=== PATIENT | male | born 1970 | race Caucasian/White ===

== ENCOUNTER 2017-09-26 18:13 | Emergency (ER) | payer OTHER ==
[~2017-09-26] VITALS: Ht 172.7 cm; Wt 127.0 kg
--- NOTE | 2017-09-26 18:13 | NUR ---
PT BIBA TO BED 11 AT THIS TIME.
[2017-09-26 18:17] VITALS: BP 191/95
--- NOTE | 2017-09-26 18:20 | NUR ---
47 YO MALE BIB EMS FROM HOME FOR SUDENT ONSET ON HTN. DENIES N/V/D; SKIN IS PINK/WARM/DRY; AAOX4 WITH EVEN AND STEADY GAIT; LUNGS CLEAR BL; HR EVEN AND REGULAR; PT DENIES ANY FEVER, CP, SOB, OR COUGH AT THIS TIME; PATIENT STATES PAIN OF 1/10 AT THIS TIME; VSS; PATIENT POSITIONED FOR COMFORT; HOB ELEVATED; BEDRAILS UP X2; BED DOWN. ER MD MADE AWARE OF PT STATUS.
[2017-09-26] MEDS ORDERED: HYDR-3320 PO (18:23)
[2017-09-26] MEDS ORDERED: METF1000 PO (18:23)
[2017-09-26] MEDS ORDERED: ASPI325T49 PO (18:23)
[2017-09-26] MEDS ORDERED: ATOR40TA PO (18:23)
[2017-09-26] MEDS ORDERED: AMLO10TA PO (18:23)
[2017-09-26] MEDS ORDERED: METO25TA PO (18:23)
[2017-09-26] MEDS ORDERED: METOPROLOL 5 MG/5 ML VIAL IVP ONE (18:25)
--- NOTE | 2017-09-26 18:41 | NUR ---
DR DELGADO EVALUATING AAO PT
--- NOTE | 2017-09-26 18:42 | NUR ---
POST LOPRESSOR MEDICATION VS; BP 149/79, HR 88, SPO2 97%, RR 16; DR DELGADO NOTIFIED AT BEDSIDE
[2017-09-26 19:00] VITALS: BP 134/85
--- NOTE | 2017-09-26 19:00 | NUR ---
Patient discharged with v/s stable. Written and verbal after care instructions given and explained. Patient verbalized understanding. Ambulatory with steady gait. All questions addressed prior to discharge. Advised to follow up with PMD.
== END 2017-09-26 19:00 | disposition home or self-care (01) ==
LOC: MED 18:13
DX: I10 Essential (primary) hypertension (principal); E11.9 Type 2 diabetes mellitus without complications; Z79.84 Long term (current) use of oral hypoglycemic drugs; Z79.899 Other long term (current) drug therapy; Z90.89 Acquired absence of other organs
CPT/HCPCS: 96374; 99284; J3490

== ENCOUNTER 2018-05-24 22:14 | Emergency (ER) | payer OTHER ==
[~2018-05-24] VITALS: Ht 172.7 cm; Wt 122.5 kg
[~2018-05-24 22:14] MED LIST: AMLO10TA PO; ASPI325T49 PO; ATOR40TA PO; HYDR-3320 PO; METF1000 PO; METO25TA PO
[2018-05-24 22:24] VITALS: BP 181/108
--- NOTE | 2018-05-24 22:29 | NUR ---
PT AMBULATED TO [facility], HYPERTENSIVE BUT STABLE AT THIS TIME.
--- NOTE | 2018-05-24 23:30 | NUR ---
PT AMBULATED TO ER BED 03
--- NOTE | 2018-05-24 23:35 | NUR ---
PT PRESENTED ER WITH C/O ELEVATED BLOOD PRESSURE TIMES 1 DAY. PT STATED TODAY HER TOOK HIS BP AND IT WAS ELEVATED. HE TOOK MEDICATION BUT THE BP DID NOT GO DOWN PER PT. PT HAS A HX OF DM, HTN AND TIA. PT HAS NO PAIN 0/10 AT THIS TIME. PT HAS NO ALLERGIES. BP DURING ASSESSMENT IS 154/95 AND PULSE IS 81. PT IS A/O X 4. SKIN IS PINK/WARM/DRY;EVEN AND STEADY GAIT; VSS; PATIENT POSITIONED FOR COMFORT; HOB ELEVATED; BEDRAILS UP X2; BED DOWN. ER MD MADE AWARE OF PT STATUS.
[2018-05-25] MEDS ORDERED: DEXAMETHASONE 10 MG/ML VIAL IVP ONE (01:25)
[2018-05-25 01:39] VITALS: BP 133/69
== END 2018-05-25 01:39 | disposition home or self-care (01) ==
LOC: MED 22:14
DX: R51 Headache (principal); I10 Essential (primary) hypertension; E11.9 Type 2 diabetes mellitus without complications; Z79.899 Other long term (current) drug therapy; Z79.84 Long term (current) use of oral hypoglycemic drugs
CPT/HCPCS: 99283